=== PATIENT | female | born 2000 | race Caucasian/White ===

== ENCOUNTER 2023-06-18 18:52 | Outpatient (CLI) | payer MEDICAID, SELFPAY | END 2023-06-18 18:53 | disposition home or self-care (01) | LOC: NFLDREF 19:11 | PROVIDERS: Visit Provider Physician Assistant | DX: Z34.03 Encounter for supervision of normal first pregnancy, third trimester (principal) | CPT/HCPCS: 87491; 87591 ==

== ENCOUNTER 2023-06-21 08:03 | Outpatient (CLI) | payer MEDICAID, SELFPAY | END 2023-06-21 08:04 | disposition home or self-care (01) | LOC: NFLDREF 06-25 19:17 | PROVIDERS: Visit Provider Physician Assistant | DX: Z34.03 Encounter for supervision of normal first pregnancy, third trimester (principal) | CPT/HCPCS: 86592 ==

== ENCOUNTER 2023-07-03 07:39 | Outpatient (CLI) | payer OTHER, MEDICAID, SELFPAY | END 2023-07-03 07:40 | disposition home or self-care (01) | LOC: NFLDREF 10:48 | PROVIDERS: Visit Provider Physician Assistant | DX: Z34.03 Encounter for supervision of normal first pregnancy, third trimester (principal) | CPT/HCPCS: 82951; 82952 ==

== ENCOUNTER 2023-07-30 19:10 | Outpatient (CLI) | payer OTHER, BC, SELFPAY ==
[2023-07-30 22:04] LABS: Candida glab/krus NOT DETECTED (No Detected); Candida species DETECTED (No Detected); Trichomonas vaginalis NOT DETECTED (No Detected)
[2023-07-30 23:24] LABS: Bacterial Vaginosis* NOT DETECTED (No Detected)
== END 2023-07-30 19:11 | disposition home or self-care (01) ==
LOC: NFLDREF 19:11
PROVIDERS: Visit Provider Advanced Practice Midwife
DX: Z34.91 Encounter for supervision of normal pregnancy, unspecified, first trimester (principal); N89.8 Other specified noninflammatory disorders of vagina
CPT/HCPCS: 81513; 86787; 86803; 87081; 87481; 87653; 87661

== ENCOUNTER 2023-08-20 12:44 | Outpatient (CLI) | payer OTHER, BC, SELFPAY ==
--- NOTE | 2023-08-20 13:00 | US_ITS ---
Patient: GRETA CAMEJO Facility:?[facility] Patient ID:?[id number] Site Patient ID:?[id number]. Site :?[id number] Study:?US-OB Pelvis OB F/U GROWTH-08/20/2023 1:24:42 PM Ordering Physician:KENYON WAGONER CNM Final Report: OB ULTRASOUND CLINICAL HISTORY: Follow-up growth. COMPARISON: None available. CHRIS by US: 08/29/2023. GA: 38 w, 5 d. FINDINGS: Gestation: Single. Cervix: Not visualized. Positioning: Vertex. Amniotic Fluid: 7.6 cm SDP Placenta: Technique: TA. Position: Anterior. Heart Rate: 154 bpm. BPD: 9.4 cm. 38 w 3 d, 71%. HC: 35.6 cm. 41 w 5 d, 93%. AC: 36.4 cm. 40 w 2 d, 96%. FL: 7.8 cm. 40 w 0 d, 85%. FL/AC Ratio: 21.49%. HC/AC Ratio: 0.98. EFW: 4007 g, 8 lbs, 13 oz. age by this US: 40 w 1 d. Percentile by CHRIS: 93%. IMPRESSION: 1. Single viable IUP. 2. Estimated weight is at the 93rd percentile. Abdominal circumference is 96th percentile, however images of the abdomen are suboptimal due to age and the abdominal circumference measurement is less accurate. Navjot Maurer M.D. Body/Diagnostic Radiologist [email or web address] [email or web address] D& Transcribed: 11:21 a.joes gusman/Dictated by: Navjot Maurer MD @ 08/21/2023 8:38:00 AM Signed by:?Navjot Maurer MD @08/21/2023 11:27:07 AM (Electronic Signature)
== END 2023-08-20 12:45 | disposition home or self-care (01) ==
LOC: US 12:45
PROVIDERS: Visit Provider Advanced Practice Midwife
DX: O36.63X0 Maternal care for excessive fetal growth, third trimester, not applicable or unspecified (principal); Z3A.38 38 weeks gestation of pregnancy
CPT/HCPCS: 76816

== ENCOUNTER 2023-08-26 00:05 | Inpatient (IN) | payer OTHER, BC, SELFPAY ==
[2023-08-25 22:41] VITALS: BP 131/72; PULSE 72
[2023-08-25 23:00] VITALS: TEMP 36.7
[2023-08-26] VITALS (65 sets, daily range): BP systolic 103–156; BP diastolic 51–89; PULSE 61–115; RESP 16–166; TEMP 36.5–36.9; O2SAT 81–99; BMI 38.9
[2023-08-26] MEDS: LACTATED RINGERS 1000 ML 1,000 ML 425 ML IV ×2 (02:57→07:45)
[2023-08-26 02:59] LABS: Basophils Absolute Auto 0.02 K/uL (0.00-0.30); Basophils Percent Auto 0.2 % (0.0-3.0); Eosinophils Absolute Auto 0.04 K/uL (0.00-0.50); Eosinophils Percent Auto 0.4 % (0.0-7.0); Hematocrit 33.9 % (33.0-51.0); Hemoglobin* 11.4 gm/dL (12.0-16.0); Immature Granulocytes Abs Auto 0.02 K/uL (0.00-0.30); Immature Granulocytes Pct Auto 0.2 %; Lymphocytes Absolute Auto 2.11 K/uL (0.90-2.90); Lymphocytes Percent Auto 21.3 % (20-44); Mean Corpuscular HGB Conc 34 gm/dL (32-36); Mean Corpuscular Hemoglobin 29 pg (26-34); Mean Corpuscular Volume 87 fL (80-100); Monocytes Percent Auto 5.8 % (0.0-11.0); Neutrophils Percent Auto 72.1 % (42.0-72.0); Platelet Count* 154 K/uL (140-440); RDW Coefficient of Variation % 14.1 % (11.5-15.5); White Blood Count* 9.92 K/uL (4.50-11.00)
[2023-08-26 03:00] LABS: Slide Review Reflex No
[2023-08-26] MEDS: ROPIVACAINE 0.2% 100 ml 100 ML 12 MG EPIDURAL ×2 (03:44→11:41)
--- NOTE | 2023-08-26 06:38 | P.LDBA_ITS ---
Subjective History of Present Illness Date Seen: 08/26/23 Narrative: Patient is being admitted to Labor and Delivery for labor. She is a 22 year old at 39.4 weeks gestation. Her full history and physical was dictated by Yaquelin Gillespie CNM on 08/06/23. Please see this for details. She was evaluated in triage for contractions. She was found to be 1cm initially but after about 2 hours was found to be 2-3cm per RN exam. She continued to get more uncomfortable and decided to get an epidural around 0400. She is now resting comfortably with her epidural. She has continued to make cervical change and was found to be 6/90%/-1 per RN exam after her epdirual placement. Specific Issues/Plans FOB: Daniel Baby: boy (Vinay) H&P done by Yaquelin Gillespie CNM on 08/06/23 1. Transfer OB at 29 weeks and 5 days. She started her OB care in [place]. Continued her OB care at 21 weeks and 6 days with [facility] in [facility] records are still pending: Received and reviewed. Moved to [place] to be closer to family. Patient and SO are living with her mother 2. History of depression, currently doing well without treatment. Has responded well to citalopram in the past. 3. Migraines 4. Has not completed 1 hour GTT, ordered 06/18/2023 1 hr GTT 06/20: 144 3 hr GTT: 107H, 162,104,133 - No GDM 5. Measuring large for dates growth US 93%, AC 96%, 8lb 13oz, SDP 7.6. Family hx of 10-11lb babies. Briefly discussed possible IOL at 40 wks. labs 05/15/2023: A positive, negative antibody screen, hemoglobin 12.3, platelets 221, rubella immune, RPR nonreactive, hepatitis-B surface antigen nonreactive, HIV nonreactive, gonorrhea and chlamydia ( ordered 06/18/2023), urine culture negative. Patient reported negative NIPT, records pending Imagin. FAS 04/25/2023: Anterior placenta, no previa. Closed cervix, 3.9 cm. CHRIS 08/29/2023. EFW 49th percentile. Normal anatomy, poorly visualized face and heart. 2. FAS follow-up for missing facial views and heart. 05/15/2023: 25 weeks and 6 days. Anterior placenta. Normal amniotic fluid. Completed including missing views, Normal anatomy. EFW 51st percentile 3. First-trimester ultrasound 02/12/23: Single live intrauterine at 11 weeks and 5 days with an CHRIS of 08/29/2023 4. Hep C and HG ordered for next visit No previous Pap, will need a Pap Tdap: 06/18/23 Flu and covid shots: declined OB - Problem Based A/P Additional Plan (1) Pain during labor: Status: Acute (2) Large for dates complicating in third trimester, antepartum: Status: Acute Plan ASSESSMENT:? at 39.4 weeks gestation? GBS negative? complicated by: increased BMI, large for dates? ?? PLAN:? 1. Candidate for analgesia of choice. Epidural placed and effective. 2. Anticipate ? 3. Expectant management at this time.? 4. IV in place and continuous monitoring after epidural placement. Delivery/Labor/Induction Plan Plan: expectant management OB Result Labs Blood Type: A (+) positive GBS Status: negative OB Exam Physical Exam Vital signs: Temp Pulse Resp BP Pulse Ox 97.8 F 86 18 112/53 L 99 08/26/23 03:15 08/26/23 06:25 08/26/23 03:15 08/26/23 06:25 08/26/23 03:39 Narrative: Psychiatric:? Alert and oriented x3? HEENT:? Normocephalic, atraumatic? Neck:? Supple without adenopathy or thyromegaly? Lungs:? Clear to auscultation bilaterally? Heart:? Regular rate and rhythm, no murmur, rub or gallop? Abdomen:? Soft, nontender, and gravid? Extremities:? No edema or erythema? Detailed Labor and Delivery Exam Patient Gravid: Yes Dilation (cm): 6 Effacement (%): 90 Contraction Frequency: 2-3 min Tachysystole: No Contraction intensity: Strong/Firm Fetus (Single) Station: -1 Amniotic Membrane Status: intact Heart Rate Baseline: 130 Monitor Accelerations: Present Monitor Decelerations: None Patrol Sergeant Variability: Moderate (6-25)
[2023-08-26] MEDS: CALCIUM CARBONATE 500 MG CHEW PO (07:42)
[2023-08-26] MEDS: FAMOTIDINE 20 MG TABLET PO (07:50)
[2023-08-26] MEDS: ONDANSETRON 2 MG/ML inj 4 MG IV (10:38)
[2023-08-26] MEDS: LACTATED RINGERS 1000 ML 1,000 ML 250 ML IV (11:44)
--- NOTE | 2023-08-26 12:18 | P.OBPN_ITS ---
Subjective Date Seen: 08/26/23 Narrative: ?Enid is coping well with labor pain/contractions. ?Her partner is with her for support. ?She would like to continue with her epidural for comfort and pain management.?She reports feeling some pressure off and on and occasional cramping. Denies leaking of fluid. Objective Exam: VSS, afebrile General Appearance:? Calm, cooperative. ?No acute distress. ? Psychiatric Exam: Alert and oriented, appropriate affect Abdomen: Gravid Ctx: ?Q 2-3 min apart. ? ?Strong FHTs: ?Baseline: 140. ? ? Variability: moderate. ?Accels: +. ? ?Decels: ?variable. SVE: 8/0 Membranes: Intact ? Vital Signs: Last Vital Signs Temp 98.1 F 08/26/23 09:55 Pulse 72 08/26/23 11:54 Resp 18 08/26/23 03:15 BP 110/55 L 08/26/23 11:54 Pulse Ox 96 08/26/23 09:54 Contractions Monitor mode: External Contraction pattern: Regular Contraction intensity: Strong/Firm Assessment Assessment: active labor Station: -1 Status: Category l Heart Rate Baseline: 130 Metal Moulder'S Assistant Variability: Moderate (6-25) Monitor Accelerations: Present Monitor Decelerations: Variable Plan Plan: Assessment:?? at 39.4 gestation?? GBS negative Patient is coping well with challenges of labor.?? Labor type: Spontaneous, Active labor? Category 1 FHR pattern.? complicated by: complicated by: increased BMI, large for dates? Labor complicated by: none? Plan:?? Continue with routine intrapartum cares as ordered.?? Patient encouraged to move and change positions to promote physiologic labor and .?? Epidural in place and working well for patient comfort. Anticipate progress to NVD. ?
[2023-08-26] MEDS: OXYTOCIN 30 unit/500 ML in NS 30 UNIT/500 ML BAG 300 UNIT IVPB (15:58)
[2023-08-26] MEDS: LIDOCAINE 1 % PF 30 ML INJECTION (16:17)
[2023-08-26] MEDS: lidocaine HCL 2 % JELLY (TOP) STERILE 6 ML UR (16:45)
--- NOTE | 2023-08-26 17:20 | W.PM.VAGDE_ITS ---
OB Procedure Vag Delivery Mother Details Mother Details: The patient is a 22 year-old, 1, Para 0, admitted on 08/26/23 at 39.3 weeks gestation for labor. : 1 Para: 1 Weeks Gestation: 39.4 Admission Date: 08/25/23 Additional Details Amniotic Membrane Status: AROM Amniotic Membrane Rupture Date: 08/26/23 Amniotic Membrane Rupture Time: 12:55 Amniotic Membrane Fluid Description: Clear Analgesia/Anesthesia Type: Epidural Waterbirth: No Pitcoin: Yes (for AMSTL) Labor Onset: 00:00 Complete: 14:25 Pushin:26 Heart: heart tones during second stage were 150 moderate variability with occasional variables until approximately 40 minutes prior to delivery then deep variable to 90-110's with contractions. There was a 6 minute deceleration with the last 4 pushes that did not resolve with position change. Baby was and pt was making strong effort with good progress. Delivery Details Delivery Date: 08/26/23 Delivery Time: 15:57 Route of delivery: Infant Gender: Male Infant Viability: Alive; Heart Rate Present Position at Delivery: OA Delivery Details: 22?y.o?at 39.4 weeks.? Enid yanes in laboring overnight and made good change. She received an epidural for pain at her request. Progressed to 6cm around 0700 and angela re gularly. She was 8cm with bulging bag of fluid at 1215, pt requested AROM which was done at 1255. She progressed normally to complete at 1425 and pushed well in right and left tilt positions. ? ? Spontaneous vaginal delivery at 1557 of?a viable?male infant.??Delivered in vertex OA position.??Shoulders delivered easily. There was a nuchal cord times one and hand by the face at delivery. ? Spontaneous cry noted.?? placed on maternal abdomen.??Cord?was clamped and cut after a 2 minute delay, infant brought to warmer for stimulation.??Nose and mouth were bulb suctioned.? Shoulder dystocia: no? Nuchal cord: yes times one, not reduced, delivered through? Meconium stained?fluid: no? Water : no? ? ? 7 at 1 minute and 9 at 5 minutes.? ? Placenta delivered spontaneously and?complete?at 1613 with a?3 vessel?cord.?? Bleeding controlled with fundal massage and?pitocin?for AMTSL.? ? Mother and were stable after delivery.? ? Lacerations:? Deep 2nd degree with extension to left perineum, repaired with 3- 0?vicryl.?? ? Bleeding?post delivery?was: moderate. ?The fundus was firm to palpation.? Blood loss: 550?mL.? Blood loss measurement type: QBL? ? ? Sponge,?lap?and needles counts are correct.? Mother and were stable after delivery.? 1 Minute Interval Total Score: 7 5 Minute Interval Total Score: 9 Additional Details Shoulder Dystocia: No Placenta Delivery Time: 16:13 Placental Delivery Description: Spontaneous Delivery repair: Vicryl Procedure Done: Global Blood Loss: 550 Laceration: Perineal - 2nd Degree Blood Loss Measurement Type: QBL Bakri Used: No Sponge/Need Count Correct: Yes Cord Vessel Description: 3 Vessels, Nuchal Cord, Loose and Delivered through Event Summary Status: Mother and infant were stable after delivery. Disposition: floor
--- NOTE | 2023-08-26 18:44 | PM.ANBPRC ---
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 Marital status: Significant other. Buddhist/cultural needs: no. Chemical or radiation exposure: no. Pre- tobacco use: 5 per day. Pre- alcohol use: 2 per week. Current tobacco use: non. Current alcohol use: noRecreational drug use: no. Dietary restrictions: no. Blood transfusion acceptable in an emergency: yes. PSYCHOSOCIAL HISTORY: History of depression or currently depressed: Yes, history. Current physical, emotional, or sexual mistreatment: Denies. Problems that will make it hard to make it to appointments: Denies. What is your current living situation?: I presently have a place to live Problems where you live: no known problems In the past 12 months, utilities in danger of being shut off: no In past 12 months, lack of transportation kept you from medical appts, meetings, work, or getting things needed for daily living: no In the past 12 mos, have been you worried that your food would run out before you had money to buy more?: never true In the past 12 mos, the food you bought just didn't last and you didn't have money to buy more?: never true Smoking Status: Former smoker How often does anyone, including family, friends and others, physically hurt you: never How often does anyone, including family, friends and others, insult or talk down to you: never How often does anyone, including family, friends and others, threaten you with harm: never How often does anyone, including family, friends and others, scream or curse at you: never Little interest or pleasure in doing things: several days Feeling down, depressed, or hopeless: not at all Meds Home Medications and Allergies Home Medications Medication Instructions Recorded Confirmed Type docosahexaenoic acid 200 mg 200 mg PO DAILY 06/18/23 08/25/23 History capsule ( DHA) Allergies Allergy/AdvReac Type Severity Reaction Status Date / Time No Known Drug Allergies Allergy Verified 08/20/23 13:33 Results Labs Labs: Laboratory Results - last 24 hr 08/26/23 02:50 WBC 9.92 RBC 3.90 L Hgb 11.4 L Hct 33.9 MCV 87 MCH 29 MCHC 34 RDW Coeff of Sara 14.1 Plt Count 154 Neut % (Auto) 72.1 H Lymph % (Auto) 21.3 Alfalfa % (Auto) 5.8 Eos % (Auto) 0.4 Baso % (Auto) 0.2 Neut # (Auto) 7.20 H Lymph # (Auto) 2.11 Alfalfa # (Auto) 0.60 Eos # (Auto) 0.04 Baso # (Auto) 0.02 Abs Immat Gran (auto) 0.02 Imm/Tot Granulo (auto) 0.2 Blood Type A Positive Antibody Screen NEGATIVE Vital Signs Vital Signs: Last Vital Signs Temp 98.2 F 08/26/23 16:59 Pulse 102 H 08/26/23 18:29 Resp 166 H 08/26/23 16:59 BP 140/63 H 08/26/23 18:29 Pulse Ox 99 08/26/23 18:13 Weight: 137.801 kg Height: 187.96 cm Anesthesia Procedures Epidural Insertion Patient Location: OB Start Time: 03:00 Stop Time: 04:00 Start Date: 08/26/23 Stop Date: 08/26/23 Reason for Block: procedure for pain Patient Position: sitting Performed By: Gabriele Scott Preanesthetic Checklist: IV checked, risks and benefits discussed, surgical consent, monitors and equipment checked, pre-op evaluation, timeout performed and anesthesia consent Prep: chlorhexidine gluconate Monitoring: blood pressure monitoring, continuous pulse oximetry and heart rate Approach: midline Vertebral Space: lumbar (1-5) Epidural Technique: ADITYA saline Needle Type: Tuohy needle Injection Technique: continuous catheter Needle gauge: 17 Needle Length (cm): 10 cm Needle Insertion Depth (cm): 9 Catheter Gauge: 19 Catheter Type: multi-orifice Catheter at skin depth (cm): 15 Test Dose Result: negative and lidocaine 1.5% with epinephrine 1 to 200,000
[2023-08-26] MEDS: IBUPROFEN 600 MG TABLET PO (18:48)
[2023-08-26] MEDS: BENZOCAINE/MENTHOL SPRAY 85 GM AEROSOL 1 APPLIC TOPICAL (18:48)
[2023-08-27 01:45] VITALS: BP 122/74; RESP 16; TEMP 37.1; O2SAT 97
[2023-08-27 04:42] VITALS: BP 119/71; RESP 16; TEMP 37.2; O2SAT 97
[2023-08-27 06:28] LABS: Hemoglobin* 10.3 gm/dL (12.0-16.0)
[2023-08-27 08:22] VITALS: BP 116/72; PULSE 75; RESP 16; TEMP 36.8; O2SAT 96
[2023-08-27] MEDS: ACETAMINOPHEN 500 MG TABLET 1000 MG PO (08:26)
[2023-08-27] MEDS: DOCUSATE SODIUM 100 MG CAPSULE PO (08:26)
--- NOTE | 2023-08-27 09:23 | P.OBPN_ITS ---
OB - PN:Subj Subjective Date Seen: 08/27/23 Patient comments OB post-: no complaints and pain well controlled [place]on[place] infant status: and doing well [place] feeding status: exclusively Narrative: Enid is a 22 y.o. who was admitted to L & D for spontaneous labor.? She had an uncomplicated NVD.? ?? The patient feels well.? The pain is well controlled with current medications.? She has no new complaints.? She is breast feeding and reports things are going well.? the patient has done well.? Vitals have been stable.? She has remained afebrile.? Has a good appetite, is tolerating a general diet.? She is voiding without difficulty.? She is passing gas and has not had a bowel movement.? She is ambulating and denies any dizziness.? Has Small amount of rubra lochia.? OB - PN: Obj Exam Physical Exam: Vital signs: Temp Pulse Resp BP Pulse Ox O2 Del Method 98.2 F 75 16 116/72 96 Room Air 08/27/23 08:22 08/27/23 08:22 08/27/23 08:22 08/27/23 08:22 08/27/23 08:22 08/27/23 08:22 Narrative: GENERAL APPEARANCE:? normal affect, alert, no distress? MOOD:? appropriate? HEENT: normocephalic, neck supple, full ROM? CHEST:? Symmetrical chest wall movement.? Normal respiratory effort.? Clear to auscultation ? HEART:? regular rate and rhythm? ABDOMEN:? soft, non-tender. Uterine fundus is firm, 1 above Umbilicus, Midline and is appropriate for the stage of recovery.? Bowel sounds present.? PERINEUM:? mild edema of the perineum, there is a 2nd degree laceration that is healing well.? EXTREMITIES:? normal and no edema? OB - PN: Obj Data Labs Labs: Laboratory Results - last 24 hr 08/27/23 06:10 Hgb 10.3 L OB - PN: A/P Delivery Assessment and Plan (1) care and examination immediately after delivery: Status: Acute (2) Lactating mother: Status: Acute Plan day: 1 Plan: routine care Comments: G 1 P 1 status post uncomplicated NVD??? 1.? Continue route PP cares? 2.? .? May see if desired? 3.? Anticipate discharge home tomorrow?
[2023-08-27] MEDS: IBUPROFEN 600 MG TABLET PO ×2 (11:44→21:40)
[2023-08-27 12:30] VITALS: BP 122/73; PULSE 85; RESP 16; TEMP 36.8; O2SAT 96
--- NOTE | 2023-08-27 13:01 | PM.ANPOST ---
Post Anesthesia Note Post Anesthesia Note Patient seen: Inpatient Respiratory Status: adequate Cardiovascular Status: adequate Mental Status: baseline Pain: adequate Temp: baseline Anesthetic awareness: N/A Complications: none Follow care: none
[2023-08-27 15:06] LABS: Rapid Plasma Reagin (RPR) Non Reactive (Non Reactive)
[2023-08-27 16:50] VITALS: BP 117/78; PULSE 80; RESP 16; TEMP 36.8; O2SAT 97
[2023-08-27 21:28] VITALS: BP 122/75; PULSE 77; RESP 16; TEMP 36.6; O2SAT 97
[2023-08-28 01:40] VITALS: BP 109/58; PULSE 78; RESP 16; TEMP 36.8; O2SAT 96
[2023-08-28] MEDS: IBUPROFEN 600 MG TABLET PO (04:28)
[2023-08-28 07:22] VITALS: BP 125/79; PULSE 82; RESP 16; TEMP 36.6; O2SAT 98
[2023-08-28] MEDS: DOCUSATE SODIUM 100 MG CAPSULE PO (08:44)
--- NOTE | 2023-08-28 09:55 | P.DS_ITS ---
DS: Providers Provider Date Seen: 08/28/23 Date of admission: 08/26/23 00:05 Primary care physician: Not a Local Provider Admitting Clinician: Liyah Laws CNM Attending Physician on discharge: Rosario Augustin APRN, CNM DS: Diagnosis Discharge Diagnosis (1) care and examination immediately after delivery: Status: Acute (2) Lactating mother: Status: Acute (3) Gestational hypertension: Status: Acute Exam Narrative: Exam Narrative: GENERAL APPEARANCE:? normal affect, alert, no distress MOOD:? appropriate CHEST:? clear to auscultation HEART:? regular rate and rhythm ABDOMEN:? soft, non-tender the uterine fundus is Umbilicus, Midline and is appropriate for the stage of recovery. PERINEUM:? mild edema of the perineum, there is a Perineal Laceration,?2nd degree, that is healing well. EXTREMITIES:? normal and trace edema Const: Vital Signs, click to edit/add: Vital Signs - 24 hr 08/27/23 12:30 08/27/23 16:50 08/27/23 21:28 Temperature 98.3 F 98.3 F 97.8 F Pulse Rate [Pulse Oximeter] 85 80 77 Respiratory Rate 16 16 16 Blood Pressure [Ri ght Arm] 122/73 117/78 122/75 Pulse Oximetry 96 97 97 Oxygen Delivery Me thod Room Air Room Air Room Air 08/28/23 01:40 08/28/23 07:22 Temperature 98.3 F 97.9 F Pulse Rate [Pulse Oximeter] 78 82 Respiratory Rate 16 16 Blood Pressure [Ri ght Arm] 109/58 L 125/79 Pulse Oximetry 96 98 Oxygen Delivery Me thod Room Air Room Air Documenting provider has reviewed patient's vital signs: yes OB - DS: Summary Hospital Course Hospital Course: Enid is a 22 y.o. G 1 P 1 who was admitted to L & D for spontaneous onset of labor. ?She had a NVD that was uncomplicated. The patient feels well. ?The pain is well controlled with current medications. ?She has no new complaints. ?She is breast feeding and reports things are going well. the patient has done well.? Vitals have been stable.? She has remained afebrile.? Has a good appetite, is tolerating a general diet. ?She is voiding without difficulty.? She is passing gas and has not had a bowel movement.? She is ambulating and denies any dizziness.? Has small amount of rubra lochia. She is planning depo for prevention. Problems: GHTN plan: Discharge home with baby. Follow up in 2 weeks and 6 weeks. , may see if needed Hgb 10.5. GHTN diagnosed by elevated BP greater than 4 hours apart Labs WNL or stable with trending Discharge home with BP cuff if does not already have one Follow up in 3-5 days Call for signs/symptoms of preeclampsia Peripartum Data Infant delivery method: Vaginal Laceration description: Perineal - 2nd Degree complications: none Gender: Male Discharge Plan: Home Status at Discharge Functional status at discharge: independent ambulation Overall status at discharge: patient is progressing back to baseline Time Spent with Patient Time attestation: Total time spent providing and/or coordinating discharge services: Time spent: Less than 30 minutes Discharge Plan Discharge Disposition: Home, Self-Care Date of Admission: 08/26/23 00:05 Attending Provider on Discharge: Rosario Augustin Primary Care Provider: Provider,Not a Local Condition: Stable Anticipated Discharge Date/Time: 08/28/23 12:00 Discharge Medications: New acetaminophen 500 mg Tablet 1,000 mg PO Q6H PRNQty: 0 0RF docusate sodium 100 mg Capsule 100 mg PO DAILY Qty: 90 0RF ibuprofen 600 mg Tablet 600 mg PO Q6H PRNQty: 60 0RF Continued DHA 200 mg capsule 200 mg PO DAILY Discharge Orders: Discharge Order (Routine); Ordered 08/28/23 Ordered By: Rosario Augustin Patient Education: OB High Blood Pressure DC, OB Over the Counter Medication Information, OB Vaginal/Breast Feeding Additional Instructions: Discharge instructions were reviewed with the patient including signs and symptoms of infection and home going medications Nothing vaginally for 6 weeks: no tampons or intercourse Off Work or School for 6 weeks Follow [facility] for a BP check?in 3-5 days Call with BP greater than or equal to 160/110 2-week visit: discuss infant feeding concerns, review control options and screen for anxiety/depression. 6-week visit for an annual exam. consultation services are available to all mothers and babies for the first year after delivery.? To make an appointment, please call [phone]. Activity Level: Activity as Tolerated Discharge Diet: Regular Follow Up Appointments: [facility] [Provider Group] Forms: Make YES! Happenth Info Instructions
[2023-08-28 10:12] LABS: Hematocrit 31.7 % (33.0-51.0); Hemoglobin* 10.5 gm/dL (12.0-16.0); Mean Corpuscular HGB Conc 33 gm/dL (32-36); Mean Corpuscular Hemoglobin 30 pg (26-34); Mean Corpuscular Volume 89 fL (80-100); Platelet Count* 148 K/uL (140-440); Red Blood Count 3.55 m/uL (4.00-5.20); White Blood Count* 10.41 K/uL (4.50-11.00)
[2023-08-28 10:13] LABS: Slide Review Reflex No
[2023-08-28 10:33] LABS: Alanine Aminotransferase* 13 U/L (4-35); Aspartate Amino Transferase* 20 U/L (12-35); Blood Urea Nitrogen* 6 mg/dL (5-24); Creatinine* 0.5 mg/dL (0.5-1.5); Est. Creatinine Clearance* 216.48; Estimated Glomerular Filt Rate 136 ml/min
== END 2023-08-28 11:05 | disposition home or self-care (01) | DRG 807 ==
LOC: OB OUT 00:05 → OB 00:05
PROVIDERS: Advanced Practice Midwife; Admitting Provider Advanced Practice Midwife; Visit Provider Advanced Practice Midwife
DX: O70.1 Second degree perineal laceration during delivery (principal); Z37.0 Single live birth; Z3A.39 39 weeks gestation of pregnancy; O99.344 Other mental disorders complicating childbirth; F32.A Depression, unspecified; G43.909 Migraine, unspecified, not intractable, without status migrainosus
CPT/HCPCS: 01967; 36415; 82565; 84450; 84460; 84520; 85018; 85025; 85027; 86592; 86850; 86900; 86901; G0463; A9270; J0665; J2001; J2371; J2405; J2795; J7120

== ENCOUNTER 2024-12-18 10:45 | Outpatient (CLI) | payer OTHER, SELFPAY ==
[2024-12-18 14:26] LABS: Chlamydia DNA Amplified* NOT DETECTED (No Detected); GC DNA Amplified* NOT DETECTED (No Detected)
== END 2024-12-18 10:46 | disposition home or self-care (01) ==
PROVIDERS: Visit Provider Physician Assistant
DX: Z34.81 Encounter for supervision of other normal pregnancy, first trimester (principal); Z67.10 Type A blood, Rh positive
CPT/HCPCS: 76817; 82565; 82570; 83020; 83021; 84156; 84450; 84460; 84520; 85660; 86592; 86703; 86704; 86706; 86762; 86787; 86803; 86850; 86900; 86901; 87086; 87340; 87491; 87591